=== PATIENT | female | born 2000 | race Two or more races ===

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

== ENCOUNTER → 2019-05-11 | Outpatient (REF) ==
[~2019-05-11] MED LIST changes: +IBUP-1114 PO
== END ==
LOC: M LAB 10:20
PROVIDERS: ATTEND Nurse Practitioner Adult Health
DX: Z00.00 Encounter for general adult medical examination without abnormal findings (principal)

== ENCOUNTER → 2019-10-18 | Outpatient (REF) | payer MEDICAID, OTHER | LOC: M SFHCADAM 18:54 | PROVIDERS: ATTEND Physician Assistant Medical | DX: J02.9 Acute pharyngitis, unspecified (principal) ==

== ENCOUNTER → 2019-12-03 | Outpatient (REF) | payer MEDICAID ==
[2019-12-03 20:06] LABS: CHLAMYDIA DNA AMPLIFICATION NEGATIVE (NEGATIVE); GC DNA AMPLIFICATION NEGATIVE (NEGATIVE)
== END ==
LOC: M SFHCWAGY 17:12
PROVIDERS: ATTEND Obstetrics & Gynecology
DX: R10.2 Pelvic and perineal pain (principal)

== ENCOUNTER → 2019-12-03 | Outpatient (CLI) | payer MEDICAID | LOC: M WHC 15:42 | PROVIDERS: ATTEND Obstetrics & Gynecology | DX: R10.2 Pelvic and perineal pain (principal) ==

== ENCOUNTER → 2020-08-01 | Outpatient (CLI) | payer SELFPAY | LOC: M LABSMTC 14:21 | PROVIDERS: ATTEND Pediatrics | DX: Z20.822 Contact with and (suspected) exposure to COVID-19 (principal) ==

== ENCOUNTER → 2020-12-01 | Outpatient (REF) | payer MEDICAID | LOC: M PLALAB 12:36 | PROVIDERS: ATTEND Obstetrics & Gynecology | DX: O99.211 Obesity complicating pregnancy, first trimester (principal); Z3A.00 Weeks of gestation of pregnancy not specified; Z53.9 Procedure and treatment not carried out, unspecified reason ==

== ENCOUNTER → 2020-12-09 | Outpatient (REF) | payer MEDICAID ==
[2020-12-09 18:17] LABS: HEMATOCRIT 37.8 % (36.0-47.0); MEAN CORPUSCULAR HGB CONC 34.4 g/dl (32.0-36.5); MEAN CORPUSCULAR VOLUME 95.9 fl (80.0-96.0); PLATELET COUNT, AUTOMATED 211 10^3/uL (150-450); RED BLOOD COUNT 3.94 10^6/uL (4.00-5.40); WHITE BLOOD COUNT 8.5 10^3/uL (4.0-10.0)
[2020-12-09 20:12] LABS: HIV 1&2 SCREEN CENTAUR NEGATIVE (NEGATIVE)
== END ==
LOC: M PLALAB 15:11
PROVIDERS: ATTEND Advanced Practice Midwife
DX: O34.219 Maternal care for unspecified type scar from previous cesarean delivery (principal); Z3A.00 Weeks of gestation of pregnancy not specified

== ENCOUNTER → 2020-12-29 | Outpatient (CLI) | payer MEDICAID | LOC: M WHC 10:29 | PROVIDERS: ATTEND Obstetrics & Gynecology | DX: Z34.82 Encounter for supervision of other normal pregnancy, second trimester (principal); Z3A.16 16 weeks gestation of pregnancy ==

== ENCOUNTER → 2021-01-20 | Outpatient (CLI) | payer MEDICAID ==
--- NOTE | 2021-01-20 10:13 | REP ---
INDICATION: ANATOMY COMPARISON: None. TECHNIQUE: Transabdominal obstetrical ultrasound with color Doppler evaluation. FINDINGS: Examination demonstrates a single live intrauterine in variable presentation. motion is identified by technologist. Marginal placenta is noted anterior and grade 1 abutting the closed internal os. Amniotic fluid volume is normal. Cervix measures 3.1 cm in length and appears closed. Selected gestational age: 19 weeks 6 days with HETAL 06/10/2021. Gestational age by current measurements 19 weeks 4 days with HETAL 06/12/2021. FHR equals 142 beats per minute. Estimated weight 300 grams (30thpercentile). Anatomical assessment demonstrates normal structures including cranium, choroid plexus, cavum, cerebellum/posterior fossa, facial profile, lungs, diaphragm, stomach, cord insertion/three-vessel cord, kidneys/bladder, spine, and extremities. Limited evaluation of the facial features and heart/ventricular outflow tracts due to positioning. IMPRESSION: 1. Single live intrauterine in variable presentation demonstrating appropriate interval growth. 2. Marginal previa. Cervix measures 3.1 cm in length and appears closed. 3. Anatomical limitations as noted above may warrant re-evaluation and follow-up. <Electronically signed by Malcolm Lowe > 01/20/21 [id number]
== END ==
LOC: M WHC 08:19
PROVIDERS: ATTEND Obstetrics & Gynecology
DX: Z34.82 Encounter for supervision of other normal pregnancy, second trimester (principal)

== ENCOUNTER → 2021-02-18 | Outpatient (CLI) | payer MEDICAID ==
--- NOTE | 2021-02-18 13:40 | REP ---
INDICATION: F/U ANATOMY,F/U ON MARGINAL PREVIA. FOLLOW-UP FACIAL FEATURES, FOUR-CHAMBER HEART, AND VENTRICULAR OUTFLOW TRACKS COMPARISON: 01/20/2021 TECHNIQUE: Transabdominal FINDINGS: Multiple ultrasonographic images of the gravid uterus shows a single living intrauterine gestation in the breech presentation. Doppler interrogation of the heart shows a heart rate of 128 beats per minute. The subjective amniotic fluid volume is normal. The placenta is anterior and not low-lying. The cervix measures 4.3 cm length and is closed. BPD: 6 cm 24 weeks 3 days HC: 22.0 cm 24 weeks 0 days AC: 19.3 cm 24 weeks 0 day FL: 4.3 cm 23 weeks 6 days The estimated weight is 649 g which is the 41st percentile for a 24 week 0 day gestational age. upper lip, four-chamber heart, and ventricular outflow tracts were well identified and appear to be unremarkable. IMPRESSION: Single living intrauterine gestation as described above an estimated gestational age of 24 weeks 0 days via composite criteria and an estimated date of delivery of 06/10/2021 by today's exam. No anomalies were detected. <Electronically signed by Igor Clarke > 02/18/21 [id number]
== END ==
LOC: M WHC 11:20
PROVIDERS: ATTEND Advanced Practice Midwife
DX: O43.102 Malformation of placenta, unspecified, second trimester (principal)

== ENCOUNTER → 2021-03-19 | Outpatient (CLI) | payer MEDICAID ==
[2021-03-19 13:25] LABS: HEMATOCRIT 36.3 % (36.0-47.0); HEMOGLOBIN 12.3 g/dl (12.0-15.5); MEAN CORPUSCULAR HEMOGLOBIN 33.3 pg (27.0-33.0); MEAN CORPUSCULAR HGB CONC 33.9 g/dl (32.0-36.5); MEAN CORPUSCULAR VOLUME 98.4 fl (80.0-96.0); PLATELET COUNT, AUTOMATED 214 10^3/uL (150-450); RED BLOOD COUNT 3.69 10^6/uL (4.00-5.40); WHITE BLOOD COUNT 11.5 10^3/uL (4.0-10.0)
== END ==
LOC: M PLALAB 08:18
PROVIDERS: ATTEND Advanced Practice Midwife
DX: O99.212 Obesity complicating pregnancy, second trimester (principal)

== ENCOUNTER → 2021-05-08 | Outpatient (REF) | payer MEDICAID | LOC: M SFHCWAGY 13:01 | PROVIDERS: ATTEND Obstetrics & Gynecology | DX: Z34.93 Encounter for supervision of normal pregnancy, unspecified, third trimester (principal); Z3A.00 Weeks of gestation of pregnancy not specified ==

== ENCOUNTER → 2021-05-29 | Outpatient (CLI) | payer MEDICAID | LOC: M LABSMTC 09:41 | PROVIDERS: ATTEND Anesthesiology | DX: Z01.818 Encounter for other preprocedural examination (principal); Z11.52 Encounter for screening for COVID-19 ==

== ENCOUNTER 2021-06-03 05:14 | Inpatient (IN) | payer MEDICAID ==
[~2021-06-03] VITALS: Ht 152.4 cm; Wt 102.4 kg
[2021-06-03] VITALS (8 sets, daily range): BP systolic 112–137; BP diastolic 55–84
[2021-06-03] MEDS ORDERED: LR 1,000 ML IV ONE (05:45)
[2021-06-03] MEDS ORDERED: BICITRA 30ML SOLN UDC PO ONE (05:45)
[2021-06-03] MEDS ORDERED: ceFAZolin SOD 2 GM in IV 1 EA IV ONE (06:00)
[2021-06-03 06:14] LABS: HEMATOCRIT 33.4 % (36.0-47.0); HEMOGLOBIN 11.4 g/dl (12.0-15.5); MEAN CORPUSCULAR HEMOGLOBIN 31.3 pg (27.0-33.0); MEAN CORPUSCULAR HGB CONC 34.1 g/dl (32.0-36.5); MEAN CORPUSCULAR VOLUME 91.8 fl (80.0-96.0); PLATELET COUNT, AUTOMATED 224 10^3/uL (150-450); RED BLOOD COUNT 3.64 10^6/uL (4.00-5.40)
[2021-06-03] MEDS: LR 1,000 ML IV SCH ×5 (06:38→21:00)
[2021-06-03] MEDS ORDERED: OXYTOCIN 30 UNITS IN 0.9% NaCl 500ML IV BAG (J2590) As Ordered ONE ×2 (07:05→08:39)
[2021-06-03] MEDS ORDERED: MORPHINE PRES-FREE INJ 10 MG/10 ML VIAL (J2274) As Ordered ONE (07:05)
[2021-06-03] MEDS ORDERED: PHENYLephrine 500MCG 5ML (100MCG/ML) SYRINGE As Ordered ONE (07:06)
[2021-06-03] MEDS ORDERED: ePHEDrine SULFATE 25 MG/5 ML(5MG/ML) SYRINGE As Ordered ONE (07:06)
[2021-06-03] MEDS ORDERED: METOCLOPRAMIDE INJ 10MG/2ML VIAL (J2765 PER 1) IV PRN (07:37)
[2021-06-03] MEDS ORDERED: NALBUPHINE HCL 10 MG/ML AMP (J2300) IV PRN (07:37)
[2021-06-03] MEDS ORDERED: ONDANSETRON 4MG/2ML VIAL IV PRN ×3 (07:37→09:25)
[2021-06-03] MEDS ORDERED: NALOXONE INJ 0.4MG/1ML VIAL (J2310 PER 1MG) IV PRN ×2 (07:37)
[2021-06-03] MEDS ORDERED: diphenhydrAMINE 50MG/ML VIAL (J1200) IV PRN (07:37)
[2021-06-03] MEDS ORDERED: METOCLOPRAMIDE INJ 10MG/2ML VIAL (J2765 PER 1) As Ordered ONE (07:42)
--- NOTE | 2021-06-03 07:44 | ROOPDOC ---
[facility] Report Of Operation Report of Operation DATE OF PROCEDURE: 06/03/21 SURGEON: Taniya Gonzalez M.D. MANAGER MARKETING: Jyothi Hawkins CNM ( essential for tissue retractions, exposure and delivery of ) PROCEDURE: Repeat section with Bilateral Nixon tubal ligation PREOPERATIVE DIAGNOSIS: 1. History of prior section 2.Satisfied parity with undesired fertility POSTOPERATIVE DIAGNOSIS: 1. History of prior section 2. Satisfied parity with undesired fertility ANESTHESIA: Spinal ESTIMATED BLOOD LOSS: 500 mL URINE OUTPUT: 100 mL INTRAVENOUS FLUIDS: 1200 mL of lactated Ringer's solution PREOPERATIVE ANTIBIOTICS:. 2 g of Ancef OPERATIVE FINDINGS: Liveborn male , Apgars 9 and 9. Weight 3580 or 7 pounds 14 ounces SPECIMENS: Bilateral segments of fallopian tubes DESCRIPTION OF PROCEDURE: After informed consent was obtained and written consent was reviewed. The patient was brought to the operating room where spinal anesthesia was placed. She was then placed in the supine position with a left lateral tilt. Rios catheter was placed and to gravity. Patient was then prepped and draped in the normal sterile fashion. A timeout operating room was performed identifying the patient, procedure be performed as well as drug allergies. Anesthesia was tested and deemed to be adequate. Pfannenstiel skin incision was made and this was carried down to the underlying rectus fascia. The fascia was then scored and this incision was extended bilaterally. The fascia was then dissected off the underlying rectus muscle superiorly and inferiorly. The rectus muscles were then in the midline. The peritoneum is then entered. Vesicouterine peritoneum was then tented and excised and a bladder flap was created. Mobius retractor was then placed. Next, a curvilinear incision was then made in the lower uterine segment. Amniotomy was performed, productive, clear fluid. The head was brought to the level of the incision atraumatically and delivered along the shoulders and corpus. The cord was clamped x2. The was brought over to the warmer with a good cry. Placenta was drained and delivered grossly intact. The uterus was cleared of all clots and debris and the uterine incision was then closed using 0 Vicryl in a running locking fashion followed by a second layer of 0 Vicryl in a running nonlocking fashion for imbrication. Attention was then turned to a bilateral Nixon tubal ligation. A window was created in the right mesosalpinx. This area was doubly ligated with 3-0 chromic and was excised with good hemostasis noted. In a similar fashion, the left fallopian tube was placed on traction. A window was created in the mesosalpinx. This area was doubly ligated with 3-0 chromic and was excised, and hemostasis was noted. The abdomen suctioned. Surgical sites reinspected and noted be hemostatic. The retractor was then removed. The anterior peritoneum was then reapproximated with 3-0 Vicryl. The rectus muscles were reapproximated 3-0 Vicryl. The fascia was then closed using 0 Vicryl in a running nonlocking fashion. The subcutaneous tissues was then irrigated and suctioned. Subcutaneous tissue was reapproximated using 3-0 Vicryl. Several subdermal stitch is placed using 3-0 Vicryl and the skin was closed with 4-0 Monocryl and subcuticular fashion. This incision was then cleaned and dried and was dressed. The patient was then taken to recovery in stable condition. All counts were correct. My nutritional assistant Kendal Hawkins played in an essential role during the operation. She assisted with tissue identification retraction, delivery of the , as well as wound closure. TANIYA GONZALEZ MD. Jun 03, 2021 07:44
[2021-06-03] MEDS ORDERED: MOM 30ML SUSPENSION UDC PO PRN (07:45)
[2021-06-03] MEDS ORDERED: OXYTOCIN DRIP 30 UNITS in IV 1 EA IV SCH (07:45)
[2021-06-03] MEDS ORDERED: SIMETHICONE 80MG CHEW TAB PO PRN (07:45)
[2021-06-03] MEDS ORDERED: RHOGAM 300 MCG (1500 IU) INJ (J2790) IM SCH (07:45)
[2021-06-03] MEDS ORDERED: MEASLES,MUMPS,RUBELLA VACCINE INJ (MMR-II) (90707) SC SCH (07:45)
[2021-06-03] MEDS ORDERED: PERCOCET 5MG/325MG TAB PO PRN ×2 (07:45)
[2021-06-03] MEDS ORDERED: KETOROLAC 60MG 2ML VIAL As Ordered ONE (07:57)
[2021-06-03] MEDS ORDERED: ONDANSETRON 4MG/2ML VIAL As Ordered ONE (07:57)
[2021-06-03] MEDS: PRENATAL VITAMINS CHEWABLE TABLET PO SCH (09:00)
[2021-06-03] MEDS: DOCUSATE SODIUM 100MG CAPSULE PO SCH ×2 (09:00→20:36)
[2021-06-03] MEDS ORDERED: fentaNYL 100 MCG/2 ML INJECTION (J3010) IV PRN (09:25)
[2021-06-03] MEDS ORDERED: oxyCODONE 5MG TAB PO PRN (09:25)
[2021-06-03] MEDS: KETOROLAC 30 MG/ML 1ML VIAL IV SCH ×2 (14:09→19:59)
[2021-06-03] MEDS: AMOXICILLIN 875 MG TAB PO SCH ×2 (23:23→23:48)
[2021-06-04] MEDS: KETOROLAC 30 MG/ML 1ML VIAL IV SCH (01:53)
[2021-06-04 02:00] VITALS: BP 110/56
[2021-06-04 06:00] VITALS: BP 130/72
[2021-06-04 08:09] LABS: HEMATOCRIT 26.5 % (36.0-47.0); MEAN CORPUSCULAR HGB CONC 32.8 g/dl (32.0-36.5); MEAN CORPUSCULAR VOLUME 94.3 fl (80.0-96.0); PLATELET COUNT, AUTOMATED 171 10^3/uL (150-450); RED BLOOD COUNT 2.81 10^6/uL (4.00-5.40); WHITE BLOOD COUNT 8.2 10^3/uL (4.0-10.0)
[2021-06-04 08:14] LABS: HEMOGLOBIN 8.7 g/dl (12.0-15.5)
[2021-06-04] MEDS: PRENATAL VITAMINS CHEWABLE TABLET PO SCH (08:36)
[2021-06-04] MEDS: AMOXICILLIN 875 MG TAB PO SCH ×2 (08:36→21:09)
[2021-06-04] MEDS: DOCUSATE SODIUM 100MG CAPSULE PO SCH ×2 (08:36→21:09)
--- NOTE | 2021-06-04 09:14 | IPNPDOC ---
Progress Note Date of Service: Jun 04, 2021 Day#: 1 Progress Note SUBJECT: Doing well without complaints. Ambulating, voiding and pain is well- controlled. Reports minimal lochia. OBJECTIVE: VITAL SIGNS: Within normal limits, afebrile. Alert and oriented times three. Abdomen: Fundus firm at U-2. Soft, NTTP. Incision: dressed Ext: neg calf tenderness. ASSESSMENT: /postoperative day #1 status post delivery. Recovering in stable condition. PLAN: 1. Continue routine /postoperative care 2. Discharge plans for tomorrow VS, I&O, 24H, Fishbone Vital Signs/I&O Vital Signs Date Time Temp Pulse Resp B/P (MAP) Pulse Ox O2 Delivery O2 Flow Rate FiO2 06/04/21 06:00 98.6 102 18 130/72 (91) 98 Room Air I&O- Last 24 Hours up to 6 AM 06/04/21 05:59 Intake Total 5830 ml Output Total 1625 ml Balance 4205 ml Laboratory Data 24H LABS Laboratory Tests 2 06/04/21 07:44: Nucleated Red Blood Cells % (auto) 0.0 CBC/BMP Laboratory Tests 06/04/21 07:44 YOVANNY GILLESPIE MD. Jun 04, 2021 09:14
[2021-06-04] MEDS: IBUPROFEN 800 MG TAB PO SCH ×2 (09:21→17:40)
[2021-06-04] MEDS ORDERED: PERCOCET PO (09:23)
[2021-06-04] MEDS ORDERED: IBUP80TA PO (09:23)
[2021-06-04 10:00] VITALS: BP 133/65
[2021-06-04 14:00] VITALS: BP 141/92
[2021-06-04 17:09] VITALS: BP 120/71
[2021-06-04 22:00] VITALS: BP 129/68
[2021-06-05 02:00] VITALS: BP 122/70
[2021-06-05] MEDS: IBUPROFEN 800 MG TAB PO SCH ×2 (02:41→09:08)
[2021-06-05 05:36] VITALS: BP 127/62
--- NOTE | 2021-06-05 08:42 | DS.PDOC ---
Discharge Summary General Date of Admission Jun 03, 2021 at 05:14 Date of Discharge 06/05/2021 Discharge Summary PROCEDURES PERFORMED DURING STAY: Repeat and bilateral tubal ligation ADMITTING DIAGNOSES: 1. Prior section x 2 2. Satisfied Parity 3. 39 week single intrauterine gestation DISCHARGE DIAGNOSES: 1. Repeat section with bilateral tubal ligation COMPLICATIONS/CHIEF COMPLAINT: Previous Cesaran Section. HISTORY OF PRESENT ILLNESS: Ms Beckett is a 21yo G4 now P 2113 admitted 06/03/2021 for repeat section and tubal ligation performed by Dr Gonzalez [facility] COURSE: Out of bed independently, adequate pain management. Tolerating diet. Voiding and passing flatus. DISCHARGE MEDICATIONS: Please see below. ALLERGIES: Please see below. PHYSICAL EXAMINATION ON DISCHARGE: VITAL SIGNS: Please see below. GENERAL: No distress CARDIOVASCULAR EXAMINATION: HRR, normotensive RESPIRATORY EXAMINATION: Clear and unlabored ABDOMINAL EXAMINATION: Fundus firm, dressing intact EXTREMITIES: Equal strength and motion SKIN: Intact NEUROLOGICAL EXAMINATION: Grossly intact PSYCHIATRIC EXAMINATION: Appropriate LABORATORY DATA: Please see below. PROGNOSIS: Good ACTIVITY: As tolerated DIET: As tolerated DISCHARGE PLAN: Home today DISCHARGE INSTRUCTIONS: 1. Remove dressing day 5. Cleanse with warm soap and water, rinse and pat dry. Oral medications as directed. Pelvic rest x 6 wks. Call with fever, nausea, vomiting, chills, foul lochia or wound exudate. Return to office 2wks and 6 wks. DISCHARGE CONDITION: Stable TIME SPENT ON DISCHARGE: 10 minutes. Vital Signs/I&Os Vital Signs Date Time Temp Pulse Resp B/P (MAP) Pulse Ox O2 Delivery O2 Flow Rate FiO2 06/05/21 05:56 16 Room Air 06/05/21 05:36 97.3 104 127/62 (83) 98 Discharge Medications Scheduled Ibuprofen (Ibuprofen) 800 Mg Tablet, 800 MG PO Q8H Scheduled PRN Oxycodone/Acetaminophen (Oxycodone-Acetaminophen 5-325) 1 Each Tablet, 1 TAB PO Q4H PRN for MODERATE PAIN (PS 5-7) Allergies Coded Allergies: No Known Allergies (Verified , 05/20/21) Gloria Sepulveda CNM Jun 05, 2021 08:42
[2021-06-05] MEDS: PRENATAL VITAMINS CHEWABLE TABLET PO SCH (09:07)
[2021-06-05] MEDS: AMOXICILLIN 875 MG TAB PO SCH (09:07)
[2021-06-05] MEDS: DOCUSATE SODIUM 100MG CAPSULE PO SCH (09:08)
== END 2021-06-05 11:40 | disposition home or self-care (01) | DRG 540 ==
LOC: M LDI 05:14 → M OBS 10:40
PROVIDERS: ADMIT Obstetrics & Gynecology; ATTEND Obstetrics & Gynecology
PROC: 0UB70ZZ Excision of Bilateral Fallopian Tubes, Open Approach (ICD-10-PCS; 2021-06-03)
PROC: 10D00Z1 Extraction of Products of Conception, Low, Open Approach (ICD-10-PCS; principal; 2021-06-03 07:30)
DX: O34.211 Maternal care for low transverse scar from previous cesarean delivery (principal); Z37.0 Single live birth; Z3A.39 39 weeks gestation of pregnancy

== ENCOUNTER → 2021-08-01 | Outpatient (REF) | LOC: M LABSMTC 12:59 | PROVIDERS: ATTEND Family Medicine | DX: Z20.822 Contact with and (suspected) exposure to COVID-19 (principal) ==

== ENCOUNTER → 2022-06-09 | Outpatient (REF) | payer MEDICAID | LOC: M LAB REF 11:07 | PROVIDERS: ATTEND Physician Assistant | DX: B34.9 Viral infection, unspecified (principal) ==

== ENCOUNTER → 2024-02-29 | Outpatient (REF) | payer MEDICAID ==
[2024-03-02 12:00] LABS: HPV APTIMA Not Detected (Not Detected)
== END ==
LOC: M SFHCWAGY 15:24
PROVIDERS: ATTEND Specialist
DX: Z01.419 Encounter for gynecological examination (general) (routine) without abnormal findings (principal)

== ENCOUNTER → 2024-03-12 | Outpatient (CLI) | payer MEDICAID | LOC: M WHC 09:24 | PROVIDERS: ATTEND Specialist | DX: N80.6 Endometriosis in cutaneous scar (principal) ==

== ENCOUNTER 2025-04-22 07:24 | Day surgery (SDC) | payer OTHER ==
[~2025-04-22] VITALS: Ht 154.9 cm; Wt 101.2 kg
[~2025-04-22 07:24] MED LIST changes: +KETOROLAC 30 MG/ML 1 ML VIAL As Ordered ONE; +LIDOCAINE 2% 100 MG/5 ML SDV (FOR ANES.) As Ordered ONE; +ONDANSETRON 4MG 2ML VIAL As Ordered ONE; +ROCURONIUM BROMIDE 50MG/5ML VIAL As Ordered ONE; +SUGAMMADEX SODIUM 500 MG/5 ML VIAL As Ordered ONE; +dexAMETHasone 4 MG/ML 1 ML VIAL As Ordered ONE
[2025-04-22] MEDS ORDERED: ACETAMINOPHEN 1000MG/100ML IV BAG As Ordered ONE (07:43)
[2025-04-22 07:54] LABS: PLATELET COUNT, AUTOMATED 213 10^3/uL (150-450)
[2025-04-22] MEDS ORDERED: MIDAZOLAM INJ 2 MG/2 ML VIAL As Ordered ONE (07:54)
[2025-04-22] MEDS ORDERED: LR 1,000 ML IV SCH ×2 (07:55→10:00)
[2025-04-22] MEDS ORDERED: IBUP600T42 PO (08:44)
[2025-04-22] MEDS ORDERED: OXYC1TAB23 PO (08:44)
[2025-04-22] MEDS ORDERED: VASOPRESSIN INJ 20UNITS/ML 1ML VIAL As Ordered ONE (08:50)
[2025-04-22] MEDS: ceFAZolin SOD 2 GM IV ONCE IV ONE (09:14)
[2025-04-22] MEDS ORDERED: ONDANSETRON 4MG 2ML VIAL IV PRN (10:00)
[2025-04-22] MEDS ORDERED: HYDROMORPHONE HCL 0.5 MG/0.5 ML SYRINGE IV PRN (10:00)
[2025-04-22 11:04] VITALS: BP 121/62; TEMP 97.3; O2SAT 100
== END 2025-04-22 11:19 | disposition home or self-care (01) ==
LOC: M SDC 07:24
PROVIDERS: ATTEND Specialist
DX: R10.2 Pelvic and perineal pain (principal); L90.5 Scar conditions and fibrosis of skin
CPT/HCPCS: 22902; 36415; 81025; 85027; 86850; 86900; 86901; 88304; J0131; J0665; J0688; J1100; J1885; J2250; J2405; J3010